=== PATIENT | female | born 1980 | race Caucasian/White ===

== ENCOUNTER 2023-03-01 10:16 | Outpatient (OUT) | payer OTHER, SELFPAY ==
--- NOTE | 2023-03-01 10:32 | US_ITS ---
The [address] [address] Patient Name: ASHLEY HUMPHREY MRN: [id number] date: 1980 Sex: F Assigned Patient Location: US Current Patient Location: US Accession/Order Number: [id number] Exam Date: 03/01/2023 10:40 Report Date: 03/01/2023 16:41 At the request of: AMI LOPEZ Procedure: US abdomen complete US abdomen complete, 03/01/2023 10:40 AM EDT INDICATION:Right upper quadrant pain x2 weeks. COMPARISON: No prior abdominal ultrasound available for comparison at the time of this dictation. TECHNIQUE: Multi-planar real-time ultrasonography of the upper abdomen (right upper quadrant) using grayscale imaging, supplemented by color, power, and spectral Doppler as needed. FINDINGS: The pancreatic head neck and visualized portions of the pancreatic body are unremarkable. The pancreatic tail is obscured by overlying bowel gas. The aorta is normal caliber. The IVC is patent. The liver is 17.1 cmwith slightly coarse increased echotexture. No intrahepatic ductal dilatation. Common bile duct 2.7mm Cholelithiasis. 3 mm x 2 mm x 5 mm nonobstructing calculus within the cystic duct. No gallbladder wall thickening or pericholecystic fluid. Negative sonographic Foley's sign. The main portal vein is antegrade with normal low resistance venous spectral tracing. Right kidney: 11.2 x 5.4 x 4.2 cm. Left kidney: 11.6 x 4.7 x 5.6 cm No hydronephrosis. Color Doppler to both kidneys. No echogenic filling defects within the urinary bladder. Spleen: 9.6 cm with normal echotexture. No ascites. US/US abdomen complete IMPRESSION: 1. Cholelithiasis. No findings to suggest acute cholecystitis. 2. Hepatomegaly with diffuse hepatic steatosis. Electronically authenticated by: KAREY CARBAJAL Date: 03/01/2023 16:41
[2023-03-01 11:25] LABS: Alanine Aminotransferase 36 U/L (14-59); Albumin Globulin Ratio 0.7; Albumin Level 3.2 g/dL (3.4-5.0); Alkaline Phosphatase 74 U/L (46-116); Amylase 40 U/L (25-115); Anion Gap 12.5; Aspartate Amino Transferase 21 U/L (15-37); BUN Creatinine Ratio 12.8; Bilirubin Total 0.5 mg/dL (0.2-1.0); Calcium 9.2 mg/dL (8.5-10.1); Carbon Dioxide 27.5 mmol/L (21.0-32.0); Chloride 103 mmol/L (98-107); Estimated GFR (African America >60 (>=60); Estimated GFR (Non-African Ame >60 (>=60); Globulin 4.3 g/dL; Glucose 106 mg/dL (74-106); Sodium 139 mmol/L (136-145); Total Protein 7.5 g/dL (6.4-8.2)
== END 2023-03-01 10:17 | disposition home or self-care (01) ==
LOC: US 10:16
PROVIDERS: PCP Family Medicine; Visit Provider Nurse Practitioner Family
DX: R10.11 Right upper quadrant pain (principal); K80.20 Calculus of gallbladder without cholecystitis without obstruction; K76.0 Fatty (change of) liver, not elsewhere classified
CPT/HCPCS: 36415; 76700; 80053; 82150; 83690